=== PATIENT | female | born 1955 | race Asian ===

== ENCOUNTER 2019-10-22 09:48 | Outpatient (CLI) | payer OTHER | END 2019-10-22 20:19 | disposition home or self-care (01) | LOC: RAD 09:48 | DX: H34.12 Central retinal artery occlusion, left eye (principal); M19.90 Unspecified osteoarthritis, unspecified site; M25.461 Effusion, right knee; I10 Essential (primary) hypertension; E78.00 Pure hypercholesterolemia, unspecified; E11.9 Type 2 diabetes mellitus without complications ==

== ENCOUNTER 2020-08-17 09:42 | Outpatient (CLI) | payer OTHER | END 2020-08-17 13:00 | disposition home or self-care (01) | LOC: RAD 09:42 | PROVIDERS: ATTEND Internal Medicine Rheumatology | DX: M17.0 Bilateral primary osteoarthritis of knee (principal); M47.816 Spondylosis without myelopathy or radiculopathy, lumbar region; M75.112 Incomplete rotator cuff tear or rupture of left shoulder, not specified as traumatic ==

== ENCOUNTER 2021-10-04 09:39 | Outpatient (CLI) | payer OTHER | END 2021-10-04 18:57 | disposition home or self-care (01) | LOC: MAMMO 09:39 | PROVIDERS: ATTEND Nurse Practitioner Family | DX: Z12.31 Encounter for screening mammogram for malignant neoplasm of breast (principal) ==